=== PATIENT | male | born 1965 | race Caucasian/White ===

== ENCOUNTER 2018-12-03 11:02 | Emergency (ER) | payer MEDICAID, OTHER ==
[~2018-12-03] VITALS: Ht 172.7 cm; Wt 84.0 kg
[~2018-12-03 11:02] MED LIST: FOLI-43 PO; PHEN100C12 MT; RISP4 PO; TOLNAFTATE; docusate sodium
[2018-12-03] MEDS ORDERED: KETOROLAC 30MG/ML VIAL IM ONE (12:15)
[2018-12-03] MEDS ORDERED: CYCLOBENZAPRINE 10MG TABLET PO ONE (12:15)
[2018-12-03 12:21] VITALS: BP 104/60
== END 2018-12-03 13:26 | disposition home or self-care (01) ==
LOC: ER 11:02
DX: S39.012A Strain of muscle, fascia and tendon of lower back, initial encounter (principal); G40.909 Epilepsy, unspecified, not intractable, without status epilepticus; F20.9 Schizophrenia, unspecified; F79 Unspecified intellectual disabilities; X50.0XXA Overexertion from strenuous movement or load, initial encounter; Y93.89 Activity, other specified; Y92.89 Other specified places as the place of occurrence of the external cause; Y99.8 Other external cause status
CPT/HCPCS: 96372; 99283; J1885; Z7610